=== PATIENT | female | born 1955 | race Caucasian/White ===

== ENCOUNTER 2016-07-05 02:27 | Observation (INO) | payer BC ==
[2016-07-05] VITALS (8 sets, daily range): BP systolic 116–1203; BP diastolic 64–83; PULSE 58–80; TEMP 98–99.2
[~2016-07-05] VITALS: Ht 162.6 cm; Wt 76.7 kg
[~2016-07-05 02:27] MED LIST: ABILIFY2 MG PO; ACTOS15 MG PO; ALAVERT10 M1 PO; ALTACE2.5 MG PO; AMOXICILLIN 50500 MG PO; ASPIRIN 32325 MG/TAB PO; ASPIRIN E.C.325 MG PO; ASPRIN; ATIVAN 0.50.5 MG/TAB PO; BACLOFEN10 MG PO; CRESTOR5 MG PO; DILANTIN 100MG100 MG PO; DILANTIN PO; DIOVAN160 M1 PO; EFFEXOR 75M75 MG/TAB PO; EFFEXOR XR75 MG/CAP PO; EFFEXOR-XR150 MG PO; EFFEXOR100 MG PO; EFFEXOR75 MG PO; EPI EZ PEN1 MG/ML IM; FORTAMET500 MG PO; GLUCOPHAGE XR500 M1 PO; GLUCOPHAGE1000 MG PO; GLUCOPHAGE500 MG/TAB; GLUCOPHAGE500 MG/TAB PO; HYGROTON 2525 MG/TAB PO; HYGROTON25 MG PO; KEPPRA 500MG500 MG PO; KEPPRA XR750 MG PO; KEPPRA1000 MG PO; KEPPRA500 MG PO; LABETALOL100 MG PO; LIORESAL 1010 MG/TAB PO; LIPITOR 40MG TA40 MG PO; LORTAB 5/500 501 TAB PO; MACROBID 1100 MG/CAP PO; MOTRIN 800800 MG/TAB PO; MOTRIN800 MG PO; NORCO 325 MG-51 TAB PO; PREDNISONE20 MG PO; PRILOSEC 20MG20 MG PO; RANITIDINE HYD150 MG PO; SINGULAIR10 MG PO; TEGRETOL 2200 MG/TA1 PO; TRANDATE 100MG100 MG PO; TRILEPTAL600 MG PO; ULTRAM50 MG PO; UNABLE; VICODIN 5/5001 UDTAB PO; VIT D3; VITAMIN D31000 IU PO; ZANTAC 150150 MG PO; ZANTAC 150MG T150 MG PO; ZOFRAN ODT4 MG PO; [UNRECOGNIZED DRUG - OTHER] PO; [UNRECOGNIZED DRUG - REMARK] PO; mirapex PO
[2016-07-05] MEDS ORDERED: PROVENTIL0.09 MG/A1 IH (02:43)
[2016-07-05] MEDS ORDERED: QVAR0.08 MG/AC IH (02:43)
[2016-07-05] MEDS ORDERED: 00186-0372-20 IH (02:44)
[2016-07-05] MEDS ORDERED: FLONASEALLERGY NS (02:45)
[2016-07-05] MEDS ORDERED: SINGULAIR 110 MG/TAB PO (02:47)
[2016-07-05 03:03] LABS: BASO % 0.2 % (0.0-2.0); EOS # 0.2 (0.0-0.7); EOS % 1.6 % (0-4.0); GRAN # 6.6 (1.4-6.5); HEMATOCRIT 36.7 % (37.0-47.0); HEMOGLOBIN 12.8 g/dl (12.5-16.0); LYMPH # 1.7 (1.2-3.4); LYMPH % 18.3 % (20.0-51.0); MEAN CELL VOLUME 90 fl (80.0-100.0); MEAN CORPUSCULAR HEMOGLOBIN 31 pg (27.0-31.0); MEAN CORPUSCULAR HGB CONC 35 g/dl (33.0-37.0); MEAN PLATELET VOLUME 10.3 fl (7.4-10.4); MONO # 0.8 (0.1-0.6); MONO % 8.7 % (1.7-9.3); PLATELET COUNT 251 K/mm3 (130-400); RED BLOOD COUNT 4.09 M/mm3 (4.10-5.30); REDCELL DISTRIBUTION WIDTH-CV 12.2 % (11.5-14.5); WHITE BLOOD COUNT 9.3 K/mm3 (4.8-10.8)
[2016-07-05 03:11] LABS: ADJUSTED CALCIUM 9.2 mg/dL (8.4-10.2); ALANINE AMINOTRANSFERASE 61 U/L (9-52); ALKALINE PHOSPHATASE 79 U/L (50-136); ANION GAP 11 mmol/L (7-16); BILIRUBIN,TOTAL 0.6 mg/dL (0.0-1.0); BLOOD UREA NITROGEN 17 mg/dL (7-17); CALCIUM 9.2 mg/dL (8.4-10.2); CARBON DIOXIDE 31 mmol/L (22-30); CHLORIDE 92 mmol/L (98-107); CREATININE, serum 0.56 mg/dL (0.52-1.25); GLUCOSE 110 mg/dL (74-106); LIPASE 78 U/L (23-300); POTASSIUM 3.6 mmol/L (3.4-5.0); SODIUM 134 mmol/L (137-145)
[2016-07-05 03:22] LABS: B-TYPE NATRIURETIC PEPTIDE 170 pg/mL (0-125)
[2016-07-05 03:24] LABS: TROPONIN-I < 0.012 ng/mL (0.000-0.034)
[2016-07-05] MEDS ORDERED: PROTONIX 40MG T40 MG PO (16:07)
[2016-07-05] MEDS ORDERED: ZANTAC 150MG T150 MG PO (16:07)
== END 2016-07-05 17:26 | disposition home or self-care (01) ==
LOC: COL.ER 02:27 → MEDICAL 05:44
PROVIDERS: Emergency Medicine; Family Medicine
DX: R10.13 Epigastric pain (principal); R74.0 Nonspecific elevation of levels of transaminase and lactic acid dehydrogenase [LDH]; J45.909 Unspecified asthma, uncomplicated; I10 Essential (primary) hypertension; E11.9 Type 2 diabetes mellitus without complications; Z87.891 Personal history of nicotine dependence
CPT/HCPCS: A9502; G0378; J2270; J2785; J7030

== ENCOUNTER 2016-07-16 12:47 | Emergency (ER) | payer BC ==
[2009-04-21 23:00] VITALS: BP 123/76
[~2016-07-16] VITALS: Ht 162.6 cm; Wt 73.6 kg
[~2016-07-16 12:47] MED LIST changes: +00186-0372-20 IH; +FLONASEALLERGY NS; +PROTONIX 40MG T40 MG PO; +PROVENTIL0.09 MG/A1 IH; +QVAR0.08 MG/AC IH; +SINGULAIR 110 MG/TAB PO
[2016-07-16 12:49] VITALS: TEMP 97.7
[2016-07-16 13:19] LABS: BASO % 0.3 % (0.0-2.0); EOS # 0.1 (0.0-0.7); EOS % 1.2 % (0-4.0); GRAN # 4.6 (1.4-6.5); GRAN % 67.2 % (42.2-75.2); HEMATOCRIT 38.4 % (37.0-47.0); HEMOGLOBIN 13.2 g/dl (12.5-16.0); LYMPH # 1.6 (1.2-3.4); LYMPH % 23.3 % (20.0-51.0); MEAN CELL VOLUME 91 fl (80.0-100.0); MEAN CORPUSCULAR HEMOGLOBIN 31 pg (27.0-31.0); MEAN CORPUSCULAR HGB CONC 34 g/dl (33.0-37.0); MEAN PLATELET VOLUME 10.5 fl (7.4-10.4); MONO # 0.5 (0.1-0.6); MONO % 7.7 % (1.7-9.3); PLATELET COUNT 260 K/mm3 (130-400); RED BLOOD COUNT 4.23 M/mm3 (4.10-5.30); REDCELL DISTRIBUTION WIDTH-CV 12.3 % (11.5-14.5); WHITE BLOOD COUNT 6.8 K/mm3 (4.8-10.8)
[2016-07-16 13:34] LABS: ADJUSTED CALCIUM 9.1 mg/dL (8.4-10.2); ALANINE AMINOTRANSFERASE 32 U/L (9-52); ALBUMIN 4.4 gm/dL (3.5-5.0); ALKALINE PHOSPHATASE 94 U/L (50-136); ANION GAP 12 mmol/L (7-16); BILIRUBIN,TOTAL 0.7 mg/dL (0.0-1.0); BLOOD UREA NITROGEN 19 mg/dL (7-17); CALCIUM 9.4 mg/dL (8.4-10.2); CARBON DIOXIDE 31 mmol/L (22-30); CHLORIDE 91 mmol/L (98-107); CREATININE, serum 0.84 mg/dL (0.52-1.25); GLUCOSE 170 mg/dL (74-106); POTASSIUM 3.5 mmol/L (3.4-5.0); SODIUM 135 mmol/L (137-145); TOTAL PROTEIN 7.4 gm/dL (6.4-8.2)
[2016-07-16 13:49] LABS: TROPONIN-I < 0.012 ng/mL (0.000-0.034)
[2016-07-16 14:47] LABS: PH 5 (5-8); SQUAMOUS EPITHELIAL 0-2 /hpf; URINE APPEARANCE Clear; URINE BACTERIA Rare /hpf; URINE BILIRUBIN Negative (NEGATIVE); URINE BLOOD 1+ (NEGATIVE); URINE COLOR Yellow; URINE GLUCOSE Negative (NEGATIVE); URINE KETONE Negative (NEGATIVE); URINE RBC 0-2 /hpf; URINE UROBILINOGEN Negative (NEGATIVE)
[2016-07-16 17:00] VITALS: BP 99/64; PULSE 66
== END 2016-07-16 17:03 | disposition home or self-care (01) ==
LOC: COL.ER 12:47
PROVIDERS: Emergency Medicine
DX: R55 Syncope and collapse (principal); E11.9 Type 2 diabetes mellitus without complications; I10 Essential (primary) hypertension; G40.909 Epilepsy, unspecified, not intractable, without status epilepticus; Z79.84 Long term (current) use of oral hypoglycemic drugs
CPT/HCPCS: J7030; Q9967

== ENCOUNTER 2016-08-30 12:45 | Emergency (ER) | payer BC ==
[2009-04-21 23:00] VITALS: BP 123/76
[~2016-08-30] VITALS: Ht 162.6 cm; Wt 74.1 kg
[2016-08-30 12:50] VITALS: BP 113/71; TEMP 99.1
[2016-08-30 13:37] LABS: PH 6 (5-8); SQUAMOUS EPITHELIAL 0-2 /hpf; URINE APPEARANCE Clear; URINE BACTERIA None Seen /hpf; URINE BILIRUBIN Negative (NEGATIVE); URINE BLOOD Negative (NEGATIVE); URINE COLOR Yellow; URINE GLUCOSE Negative (NEGATIVE); URINE KETONE Negative (NEGATIVE); URINE RBC 0-2 /hpf; URINE UROBILINOGEN Negative (NEGATIVE); URINE WBC 0-2 /hpf
[2016-08-30 14:14] VITALS: PULSE 68
== END 2016-08-30 14:14 | disposition home or self-care (01) ==
LOC: COL.ER 12:45
PROVIDERS: Physician Assistant
DX: S20.222A Contusion of left back wall of thorax, initial encounter (principal); W22.8XXA Striking against or struck by other objects, initial encounter; I10 Essential (primary) hypertension; E11.9 Type 2 diabetes mellitus without complications; Z79.84 Long term (current) use of oral hypoglycemic drugs; Z87.891 Personal history of nicotine dependence

== ENCOUNTER 2016-10-09 11:02 | Outpatient (RCR) | payer OTHER ==
[2016-11-20] MEDS ORDERED: ALIGN (09:24)
[2016-11-20] MEDS ORDERED: KLOR-CON 88 ME1 PO (09:24)
[2016-11-20] MEDS ORDERED: ZESTRIL 20MG TA20 MG PO (09:25)
[2016-11-20] MEDS ORDERED: PRILOSEC 20MG20 MG PO (09:26)
[2016-11-20] MEDS ORDERED: ZOCOR 40MG40 MG PO (09:26)
[2016-11-20] MEDS ORDERED: EFFEXOR-XR150 MG PO (09:43)
== END 2016-12-05 ==
LOC: WSOH
DX: S20.222A Contusion of left back wall of thorax, initial encounter (principal); M62.830 Muscle spasm of back; W22.8XXA Striking against or struck by other objects, initial encounter; Y99.0 Civilian activity done for income or pay

== ENCOUNTER 2016-11-20 09:01 | Day surgery (SDC) | payer BC ==
[2009-04-21 23:00] VITALS: BP 123/76
[~2016-11-20] VITALS: Ht 162.6 cm; Wt 75.6 kg
[2016-11-20] MEDS ORDERED: ALIGN (09:24)
[2016-11-20] MEDS ORDERED: KLOR-CON 88 ME1 PO (09:24)
[2016-11-20] MEDS ORDERED: ZESTRIL 20MG TA20 MG PO (09:25)
[2016-11-20] MEDS ORDERED: ZOCOR 40MG40 MG PO (09:26)
[2016-11-20] MEDS ORDERED: PRILOSEC 20MG20 MG PO (09:26)
[2016-11-20] MEDS ORDERED: EFFEXOR-XR150 MG PO (09:43)
[2016-11-20 09:52] VITALS: BP 138/84; PULSE 67; TEMP 96.1
[2016-11-20 10:42] VITALS: BP 118/71; PULSE 66; TEMP 97
[2016-11-20 10:57] VITALS: BP 116/83; PULSE 55; TEMP 97.3
[2016-11-20 11:12] VITALS: BP 121/68; PULSE 68; TEMP 97.2
[2016-11-20 11:27] VITALS: BP 116/84; PULSE 61; TEMP 97.2
== END 2016-11-20 12:12 | disposition home or self-care (01) ==
LOC: SDCO 09:01
DX: Z12.11 Encounter for screening for malignant neoplasm of colon (principal); Z83.71 Family history of colonic polyps; K64.0 First degree hemorrhoids; I10 Essential (primary) hypertension; E11.9 Type 2 diabetes mellitus without complications; E78.00 Pure hypercholesterolemia, unspecified; R56.9 Unspecified convulsions; J45.909 Unspecified asthma, uncomplicated; K21.9 Gastro-esophageal reflux disease without esophagitis; Z87.891 Personal history of nicotine dependence
CPT/HCPCS: OP; J2704; J7030

== ENCOUNTER → 2016-12-05 | Outpatient (CLI) | payer BC ==
[~2016-12-05] MED LIST changes: +ALIGN; +KLOR-CON 88 ME1 PO; +ZESTRIL 20MG TA20 MG PO; +ZOCOR 40MG40 MG PO
== END ==
LOC: COL.VAS 12:24
DX: R20.0 Anesthesia of skin (principal)
CPT/HCPCS: Q9967

== ENCOUNTER → 2017-06-13 | Outpatient (CLI) | payer BC | LOC: MC.RAD 11:40 | DX: Z12.31 Encounter for screening mammogram for malignant neoplasm of breast (principal) ==

== ENCOUNTER 2017-08-02 09:43 | Emergency (ER) | payer BC ==
[2009-04-21 23:00] VITALS: BP 123/76
[~2017-08-02] VITALS: Ht 167.6 cm; Wt 81.8 kg
[2017-08-02 09:44] VITALS: TEMP 98.3
[2017-08-02 10:25] LABS: BASO % 0.3 % (0.0-2.0); EOS # 0.1 (0.0-0.7); GRAN # 4.6 (1.4-6.5); GRAN % 71.9 % (42.2-75.2); LYMPH # 1.2 (1.2-3.4); LYMPH % 18.3 % (20.0-51.0); MEAN CELL VOLUME 93 fl (80.0-100.0); MEAN CORPUSCULAR HEMOGLOBIN 31 pg (27.0-31.0); MEAN CORPUSCULAR HGB CONC 34 g/dl (33.0-37.0); MEAN PLATELET VOLUME 10.2 fl (7.4-10.4); MONO # 0.5 (0.1-0.6); MONO % 7.3 % (1.7-9.3); PLATELET COUNT 220 K/mm3 (130-400); RED BLOOD COUNT 3.83 M/mm3 (4.10-5.30); REDCELL DISTRIBUTION WIDTH-CV 12.5 % (11.5-14.5)
[2017-08-02 10:26] LABS: HEMATOCRIT 35.7 % (37.0-47.0)
[2017-08-02 10:38] LABS: ALANINE AMINOTRANSFERASE 36 U/L (9-52); ALBUMIN 3.6 gm/dL (3.5-5.0); ALKALINE PHOSPHATASE 72 U/L (50-136); ANION GAP 9 mmol/L (7-16); AST,SGOT 19 U/L (15-37); BILIRUBIN,TOTAL 0.1 mg/dL (0.0-1.0); BLOOD UREA NITROGEN 14 mg/dL (7-17); CALCIUM 8.4 mg/dL (8.4-10.2); CARBON DIOXIDE 30 mmol/L (22-30); CHLORIDE 101 mmol/L (98-107); CREATININE, serum 0.52 mg/dL (0.52-1.25); GLUCOSE 89 mg/dL (74-106); POTASSIUM 3.7 mmol/L (3.4-5.0); SODIUM 139 mmol/L (137-145); TOTAL PROTEIN 6.2 gm/dL (6.4-8.2)
[2017-08-02 10:39] LABS: C-REACTIVE PROTEIN < 0.5 mg/dL (0.0-0.9)
[2017-08-02 10:52] LABS: PROLACTIN 18.6 ng/mL (3.0-18.6)
[2017-08-02] MEDS ORDERED: ZYRTEC 10MG10 MG PO (11:16)
[2017-08-02 11:36] VITALS: BP 157/87; PULSE 62
== END 2017-08-02 11:48 | disposition home or self-care (01) ==
LOC: COL.ER 09:43
PROVIDERS: Emergency Medicine
DX: G40.909 Epilepsy, unspecified, not intractable, without status epilepticus (principal); F17.210 Nicotine dependence, cigarettes, uncomplicated
CPT/HCPCS: J2405; J7030

== ENCOUNTER 2018-01-24 09:59 | Emergency (ER) | payer BC ==
[2009-04-21 23:00] VITALS: BP 123/76
[~2018-01-24] VITALS: Ht 160 cm; Wt 79.5 kg
[~2018-01-24 09:59] MED LIST changes: +ZYRTEC 10MG10 MG PO
[2018-01-24 10:00] VITALS: TEMP 98.5
[2018-01-24 12:32] VITALS: BP 140/79; PULSE 62
== END 2018-01-24 12:33 | disposition home or self-care (01) ==
LOC: COL.ER 09:59
DX: T22.20XA Burn of second degree of shoulder and upper limb, except wrist and hand, unspecified site, initial encounter (principal); F32.9 Major depressive disorder, single episode, unspecified; I10 Essential (primary) hypertension; G40.909 Epilepsy, unspecified, not intractable, without status epilepticus; Z98.51 Tubal ligation status; Z98.890 Other specified postprocedural states; Z79.84 Long term (current) use of oral hypoglycemic drugs; X12.XXXA Contact with other hot fluids, initial encounter; Y92.89 Other specified places as the place of occurrence of the external cause